=== PATIENT | male | born 1970 | race Caucasian/White ===

== ENCOUNTER 2021-07-17 11:52 | Emergency (ER) | payer OTHER ==
[2021-07-17] MEDS ORDERED: PREDNISONE 20MG20 MG PO (14:37)
== END 2021-07-17 15:16 | disposition home or self-care (01) ==
LOC: FER 11:52
DX: M17.12 Unilateral primary osteoarthritis, left knee (principal); B35.9 Dermatophytosis, unspecified; E66.9 Obesity, unspecified
CPT/HCPCS: 73560; 93971